=== PATIENT | male | born 2000 ===

== ENCOUNTER 2023-08-10 23:21 | Emergency (ER) | payer OTHER, SELFPAY ==
[2023-08-10 23:41] VITALS: BP 137/73; PULSE 81; RESP 18; TEMP 36.9; O2SAT 98; BMI 33.8
[2023-08-11 00:33] LABS: IDNOW Serial# 08D9AD1C; Strep A Nucleic Acid Negative (Negative)
[2023-08-11 00:46] LABS: Influenza A PCR NEGATIVE (Negative); Influenza B PCR NEGATIVE (Negative); Resp Syncy Virus RNA Qual PCR NEGATIVE (Negative); SARS COV2 PCR INHOUSE NEGATIVE (Negative)
== END 2023-08-11 03:12 | disposition left against medical advice (07) ==
PROVIDERS: Emergency Provider Emergency Medicine
DX: R19.7 Diarrhea, unspecified (principal); Z03.818 Encounter for observation for suspected exposure to other biological agents ruled out; Z53.21 Procedure and treatment not carried out due to patient leaving prior to being seen by health care provider
CPT/HCPCS: 0241U; 87651; 99281; 99283